=== PATIENT | female | born 1960 | race Caucasian/White ===

== ENCOUNTER 2017-06-26 14:39 | Emergency (ER) | payer MEDICAID ==
[~2017-06-26] VITALS: Ht 160 cm; Wt 83.0 kg
[2017-06-26 14:44] VITALS: BP 106/61
== END 2017-06-26 16:55 | disposition home or self-care (01) ==
LOC: ED 16:49
DX: Z53.21 Procedure and treatment not carried out due to patient leaving prior to being seen by health care provider (principal)
CPT/HCPCS: 93005

== ENCOUNTER 2021-03-03 17:03 | Emergency (ER) | payer MEDICAID ==
[~2021-03-03] VITALS: Ht 160 cm; Wt 69.5 kg
[2021-03-03 17:54] LABS: BASOPHILS % (AUTO) 1 % (0-1); EOSINOPHILS % (AUTO) 10 % (1-7); LYMPHOCYTES % (AUTO) 34 % (22-44); MEAN CORPUSCULAR HEMOGLOBIN 31.3 pg (27.0-34.8); MEAN CORPUSCULAR HGB CONC 33.4 g/dL (32.4-35.8); MONOCYTES % (AUTO) 5 % (2-9); NEUTROPHILS % (AUTO) 50 % (42-75); PLATELET COUNT 247 x10^3/uL (130-400); RED BLOOD COUNT 4.56 x10^6/uL (3.82-5.3)
[2021-03-03] MEDS ORDERED: SODIUM CHLORIDE FLUSH 10ML SYR IVF ONE (18:00)
[2021-03-03] MEDS ORDERED: methylPREDNISolone SOD SUCC 125 MG/2 ML IV ONE (18:00)
[2021-03-03] MEDS ORDERED: ALBUTEROL/IPRATROPIUM 2.5MG/0.5MG, 3 ML NEB ONE (18:00)
--- NOTE | 2021-03-03 18:03 | NUR ---
PT UPRIGHT ON GURNEY AWAKE & COMFORTABLE, RECEIVING TX BY RT, RESPONDS APPROP TO STAFF, NAD, COMFORT MEASURES PROVIDED, FRIEND AT BS, CALL LIGHT WITHIN REACH.
[2021-03-03 18:07] LABS: ALANINE AMINOTRANSFERASE 29 U/L (12-78); ALBUMIN 3.5 g/dL (3.4-5.0); ANION GAP 3 mmol/L (5-15); CALCIUM 8.3 mg/dL (8.5-10.1); CHLORIDE 113 mmol/L (98-107)
[2021-03-03 18:09] LABS: ALKALINE PHOSPHATASE 137 U/L (45-117); BILIRUBIN,TOTAL 0.3 mg/dL (0.2-1.0); TOTAL PROTEIN 6.9 g/dL (6.4-8.2)
--- NOTE | 2021-03-03 19:02 | NUR ---
PT REMAINS UPRIGHT ON GURNEY AWAKE & MORE COMFORTABLE AFTER MEDS & NPPB, RESPONDS APPROP TO STAFF, NAD, NO NEEDS AT THIS TIME, FAMILY MEMBER AT BS, CALL LIGHT WITHIN REACH.
[2021-03-03 19:03] VITALS: BP 169/79
--- NOTE | 2021-03-03 20:00 | NUR ---
PT UPRIGHT ON GURNEY AWAKE & COMFORTABLE, RESPONDS APPROP TO STAFF, NAD, NO NEEDS AT THIS TIME, FAMILY MEMBER AT BS, CALL LIGHT WITHIN REACH. AWAITING ERP UPDATE FOR DISPO.
--- NOTE | 2021-03-03 20:46 | NUR ---
PT ELOPED PRIOR TO RECEIVING DC PAPERWORK & PIV REMOVAL- ERP AWARE, NO EVIDENCE IN PT ROOM INDICATING PIV REMOVED & PT DID NOT CHECK OUT WITH THE DC DESK NOR DID SHE ASK ANY STAFF TO DC PIV PRIOR TO LEAVING. SHIFT PRODUCTION ASSOCIATE AWARE, [facility]A CALLED FOR PT RETURN IF STILL IN PLACE OR PH CALL IF PIV DC'D UPON THEIR ENCOUNTER WITH PT. Addendum: 03/03/21 at 2054 by ALEXSANDRA PT ELOPED PRIOR TO RECEIVING DC PAPERWORK & PIV REMOVAL- ERP AWARE, NO EVIDENCE IN PT ROOM INDICATING PIV REMOVED & PT DID NOT CHECK OUT WITH THE DC DESK NOR DID SHE ASK ANY STAFF TO DC PIV PRIOR TO LEAVING. ATTEMPTED TO CONTACT PT VIA PH & CONTACTS ON FILE BUT UNABLE TO LEAVE VM D/T "MAILBOX FULL". SHIFT PRODUCTION ASSOCIATE AWARE, [facility]AYA CALLED FOR LEAD AUDITOR BACK TO ER IF STILL IN PLACE OR PH CALL IF PIV DC'D UPON THEIR ENCOUNTER WITH PT.
== END 2021-03-03 20:51 | disposition left against medical advice (07) ==
LOC: ED 19:14
DX: J20.9 Acute bronchitis, unspecified (principal); R55 Syncope and collapse; R06.02 Shortness of breath; F17.210 Nicotine dependence, cigarettes, uncomplicated; J44.9 Chronic obstructive pulmonary disease, unspecified; G89.29 Other chronic pain; I25.2 Old myocardial infarction; I10 Essential (primary) hypertension; Z86.73 Personal history of transient ischemic attack (TIA), and cerebral infarction without residual deficits
CPT/HCPCS: 36415; 71045; 80053; 85025; 93005; 94640; 96374; 99285; J2930